=== PATIENT | female | born 1970 | race African-American/Black ===

== ENCOUNTER 2016-09-30 12:18 | Emergency (ER) | payer OTHER ==
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
[~2016-09-30 12:18] MED LIST: FLEXERIL10 M1 PO; LORTAB 7.5-5001 TAB PO; NAPROSYN500 MG PO
== END 2016-09-30 12:38 | disposition home or self-care (01) ==
LOC: SED 12:18
DX: S06.0X0A Concussion without loss of consciousness, initial encounter (principal); W20.8XXA Other cause of strike by thrown, projected or falling object, initial encounter; Y92.009 Unspecified place in unspecified non-institutional (private) residence as the place of occurrence of the external cause
CPT/HCPCS: 70450; 99284